=== PATIENT | male | born 1950 | race Caucasian/White ===

== ENCOUNTER → 2016-08-02 | Outpatient (CLI) | payer MEDICARE, OTHER ==
[~2016-08-02] MED LIST: AMLO5TAB2 PO; ASP325T PO; CATHETER FLUSH 10 ML SYR IV PRN; CPR500T PO; EZET1TAB15 PO; IOHEXOL 350 MG/ML 150 ML (OMNIPAQUE 350) VIAL IV ONE; MELO-198 PO; METF1000; METF850T PO; METO50TA7 PO; NF-ESOM40C PO; NS 100 ML (IVPB) BAG IV ONE; OMEG-12 PO; OMG1KC PO; OXYC-12 PO; QUIN40TA PO; SILD50TA PO
--- OUTSIDE RECORDS SUMMARY | 2016-08-02 10:53 | XMS REPORT | Continuity of Care Document ---
Author Author [facility] Organization [facility] Address Unknown Phone Unavailable Allergies Active Description Code Type Severity Reaction Onset Reported/Identified Relationship to Patient Clinical Status Yes No Known Drug Allergies [id number] Drug Allergy Unknown N/ A 05/03/2011 Medications Problems Date Dx Coded Attending Type Code Diagnosis Diagnosed By 01/25/2012 Ot 592.1 01/25/2012 Ot 789.09 08/16/2012 Ot 530.11 09/24/2014 Ot 959.4 09/24/2014 Ot E000.8 09/24/2014 Ot E030 09/24/2014 Ot E849.0 09/24/2014 Ot E917.9 09/24/2014 Ot 401.9 09/24/2014 Ot 414.01 09/24/2014 Ot 785.1 09/24/2014 Ot 401.9 09/24/2014 Ot 414.00 09/24/2014 Ot 785.1 09/24/2014 Ot 397.0 09/24/2014 Ot 414.00 09/24/2014 Ot 424.0 09/24/2014 Ot 427.69 09/24/2014 Ot 428.0 09/24/2014 Ot 785.1 09/24/2014 Ot 414.00 09/24/2014 Ot 427.69 09/24/2014 Ot 785.1 09/24/2014 Ot V72.84 09/24/2014 CARLOZ ROY, DAMI Salas Ot 726.12 09/24/2014 CARLOZ ROY, DAMI Saals Ot 923.03 09/26/2014 AMOS ROY, DAKOTA Lew Ot V72.84 10/02/2014 Ot 959.4 10/02/2014 Ot E000.8 10/02/2014 Ot E030 10/02/2014 Ot E849.0 10/02/2014 Ot E917.9 10/02/2014 Ot 401.9 10/02/2014 Ot 414.01 10/02/2014 Ot 785.1 10/02/2014 Ot 401.9 10/02/2014 Ot 414.00 10/02/2014 Ot 785.1 10/02/2014 Ot 397.0 10/02/2014 Ot 414.00 10/02/2014 Ot 424.0 10/02/2014 Ot 427.69 10/02/2014 Ot 428.0 10/02/2014 Ot 785.1 10/02/2014 Ot 414.00 10/02/2014 Ot 427.69 10/02/2014 Ot 785.1 10/02/2014 Ot V72.84 10/02/2014 CARLOZ ROY, DAMI Salas Ot 726.12 10/02/2014 CARLOZ ROY, DAMI Salas Ot 923.03 10/02/2014 AMOS ROY, DAKOTA Lew Ot V72.84 10/02/2014 Ot 959.4 10/02/2014 Ot E000.8 10/02/2014 Ot E030 10/02/2014 Ot E849.0 10/02/2014 Ot E917.9 10/02/2014 Ot 401.9 10/02/2014 Ot 414.01 10/02/2014 Ot 785.1 10/02/2014 Ot 401.9 10/02/2014 Ot 414.00 10/02/2014 Ot 785.1 10/02/2014 Ot 397.0 10/02/2014 Ot 414.00 10/02/2014 Ot 424.0 10/02/2014 Ot 427.69 10/02/2014 Ot 428.0 10/02/2014 Ot 785.1 10/02/2014 Ot 414.00 10/02/2014 Ot 427.69 10/02/2014 Ot 785.1 10/02/2014 Ot V72.84 10/02/2014 CARLOZ ROY, DAMI Salas Ot 726.12 10/02/2014 CARLOZ ROY, DAMI Salas Ot 923.03 10/02/2014 AMOS ROY, DAKOTA Lew Ot V72.84 10/02/2014 AMOS ROY, DAKOTA Lew Ot 530.11 04/08/2015 Ot 401.9 04/08/2015 Ot 414.01 04/08/2015 Ot 785.1 04/08/2015 Ot 401.9 04/08/2015 Ot 414.00 04/08/2015 Ot 785.1 04/08/2015 Ot 397.0 04/08/2015 Ot 414.00 04/08/2015 Ot 424.0 04/08/2015 Ot 427.69 04/08/2015 Ot 428.0 04/08/2015 Ot 785.1 04/08/2015 Ot 414.00 04/08/2015 Ot 427.69 04/08/2015 Ot 785.1 04/08/2015 Ot V72.84 04/08/2015 CARLOZ ROY, DAMI Salas Ot 726.12 04/08/2015 CARLOZ ROY, DAMI Salas Ot 923.03 04/08/2015 AMOS ROY, DAKOTA Lew Ot V72.84 04/10/2015 Ot 401.9 04/10/2015 Ot 414.01 04/10/2015 Ot 785.1 04/10/2015 Ot 401.9 04/10/2015 Ot 414.00 04/10/2015 Ot 785.1 04/10/2015 Ot 397.0 04/10/2015 Ot 414.00 04/10/2015 Ot 424.0 04/10/2015 Ot 427.69 04/10/2015 Ot 428.0 04/10/2015 Ot 785.1 04/10/2015 Ot 414.00 04/10/2015 Ot 427.69 04/10/2015 Ot 785.1 04/10/2015 Ot V72.84 04/10/2015 CARLOZ ROY, DAMI Salas Ot 726.12 04/10/2015 CARLOZ ROY, DAMI Salas Ot 923.03 04/10/2015 AMOS ROY, DAKOTA Lew Ot V72.84 04/10/2015 SAL ROY, NILESH Blount Ot E78.2 04/10/2015 NILESH HUANG MD Ot I10 04/10/2015 NILESH HUANG MD Ot I25.10 04/10/2015 NILESH HUANG MD Ot I65.23 04/14/2015 Ot 401.9 04/14/2015 Ot 414.01 04/14/2015 Ot 785.1 04/14/2015 Ot 401.9 04/14/2015 Ot 414.00 04/14/2015 Ot 785.1 04/14/2015 Ot 397.0 04/14/2015 Ot 414.00 04/14/2015 Ot 424.0 04/14/2015 Ot 427.69 04/14/2015 Ot 428.0 04/14/2015 Ot 785.1 04/14/2015 Ot 414.00 04/14/2015 Ot 427.69 04/14/2015 Ot 785.1 04/14/2015 Ot V72.84 04/14/2015 CARLOZ ROY, DAMI Salas Ot 726.12 04/14/2015 CARLOZ ROY, DAMI Salas Ot 923.03 04/14/2015 AMOS ROY, DAKOTA Lew Ot V72.84 04/14/2015 SAL ROY, NILESH Blount Ot E78.2 04/14/2015 SAL ROY, NILESH Blount Ot I10 04/14/2015 SAL ROY, NILESH Blount Ot I25.10 04/14/2015 SAL ROY, NILESH Blount Ot I65.23 04/15/2015 SAL ROY, NILESH Blount Ot I77.810 04/29/2015 SAL ROY, NILESH Blount Ot E78.2 04/29/2015 SAL ROY, NILESH Blount Ot I10 04/29/2015 SAL ROY, NILESH Blount Ot I25.10 04/29/2015 SAL ROY, NILESH Blount Ot I65.23 05/06/2015 SAL ROY, NILESH Blount Ot I77.810 07/10/2015 VANDANA ROY, EDELMIRA Salas Ot J98.11 07/10/2015 EDELMIRA ROSS MD Ot R42 07/13/2015 Ot 401.9 07/13/2015 Ot 414.01 07/13/2015 Ot 785.1 07/13/2015 Ot 401.9 07/13/2015 Ot 414.00 07/13/2015 Ot 785.1 07/13/2015 Ot 397.0 07/13/2015 Ot 414.00 07/13/2015 Ot 424.0 07/13/2015 Ot 427.69 07/13/2015 Ot 428.0 07/13/2015 Ot 785.1 07/13/2015 Ot 414.00 07/13/2015 Ot 427.69 07/13/2015 Ot 785.1 07/13/2015 Ot V72.84 07/13/2015 CARLOZ ROY, DAMI Salas Ot 726.12 07/13/2015 CARLOZ ROY, DAMI Salas Ot 923.03 07/13/2015 AMOS ROY, DAKOTA Lew Ot V72.84 07/13/2015 NILESH HUANG MD Ot E78.2 07/13/2015 NILESH HUANG MD Ot I10 07/13/2015 NILESH HUANG MD Ot I25.10 07/13/2015 NILESH HUANG MD Ot I65.23 07/13/2015 NILESH HUANG MD Ot I77.810 01/25/2016 DAMI CARTY MD Ot R53.83 OTHER FATIGUE 01/28/2016 CARLOZ ROY DAMI D Ot R53.83 OTHER FATIGUE 01/28/2016 CARLOZ ROY, DAMI D Ot R68.84 JAW PAIN 01/29/2016 CARLOZ ROY, DAMI D Ot R51 HEADACHE 01/29/2016 CARLOZ ROY DAMI Maritza Ot R68.84 JAW PAIN 02/25/2016 CARLOZ ROY, DAMI D Ot R51 HEADACHE 02/25/2016 CARLOZ ROY DAMI D Ot R68.84 JAW PAIN 02/25/2016 Ot R93.0 ABNORMAL FINDINGS ON DX IMAGING OF SKULL Procedures Results Test Result Range Automated blood complete blood count (hemogram) panel - 01/25/16 09:08 Blood leukocytes automated count (number/volume) 5.5 10*3/ uL 4.3-11.0 Blood erythrocytes automated count (number/volume) 4.63 10*6 /uL 4.35-5.85 Venous blood hemoglobin measurement (mass/volume) 14.7 g/dL 13.3-17.7 Blood hematocrit (volume fraction) 43 % 40-54 Automated erythrocyte mean corpuscular volume 92 [foz_us] 80-99 Automated erythrocyte mean corpuscular hemoglobin (mass per erythrocyte) 32 pg 25-34 Automated erythrocyte mean corpuscular hemoglobin concentration measurement ( mass/volume) 35 g/dL 32-36 Automated erythrocyte distribution width ratio 13.3 % 10.0-14.5 Automated blood platelet count (count/volume) 281 10*3/uL 130-400 Automated blood platelet mean volume measurement 9.9 [foz_us ] 7.4-10.4 Comprehensive metabolic panel - 01/25/16 09:08 Serum or plasma sodium measurement (moles/volume) 139 mmol/ L 135-145 Serum or plasma potassium measurement (moles/volume) 4.1 mmol/L 3.6-5.0 Serum or plasma chloride measurement (moles/volume) 107 mmol /L 98-107 Carbon dioxide 21 mmol/L 21-32 Serum or plasma anion gap determination (moles/volume) 11 mmol/L 5-14 Serum or plasma urea nitrogen measurement (mass/volume) 19 mg/dL 7-18 Serum or plasma creatinine measurement (mass/volume) 0.99 mg /dL 0.60-1.30 Serum or plasma urea nitrogen/creatinine mass ratio 19 NRG Serum or plasma creatinine measurement with calculation of estimated glomerular filtration rate > NRG Serum or plasma glucose measurement (mass/volume) 259 mg/dL 70-105 Serum or plasma calcium measurement (mass/volume) 9.6 mg/dL 8.5-10.1 Serum or plasma total bilirubin measurement (mass/volume) 0.7 mg/dL 0.1-1.0 Serum or plasma alkaline phosphatase measurement (enzymatic activity/volume) 58 U/L 40-136 Serum or plasma aspartate aminotransferase measurement (enzymatic activity/ volume) 22 U/L 5-34 Serum or plasma alanine aminotransferase measurement (enzymatic activity/volume ) 28 U/L 0-55 Serum or plasma protein measurement (mass/volume) 6.8 g/dL 6.4-8.2 Serum or plasma albumin measurement (mass/volume) 4.3 g/dL 3.2-4.5 THYROID STIMULATING HORMONE - 01/25/16 09:08 THYROID STIMULATING HORMONE 1.00 u[iU]/mL 0.35-4.94 Encounters ACCT No. Visit Date/Time Discharge Status Pt. Type Provider Facility Loc./Unit Complaint [id number] 07/10/2015 10:58:00 2015 13:01:00 DIS Emergency VANDANA ROY, EDELMIRA Salas [facility] ER [id number] 04/14/2015 08:03:00 2014 23:59:59 CLS Outpatient NILESH HUANG MD [facility] RAD [id number] 04/08/2015 07:43:00 2014 23:59:59 CLS Outpatient NILESH HUANG MD [facility] CARD [id number] 10/02/2014 08:09:00 2014 11:15:00 DIS Outpatient DAKOTA TRINIDAD MD [facility] [id number] 09/25/2014 06:39:00 2014 23:59:59 CLS Outpatient DAKOTA TRINIDAD MD [facility] PREOP [id number] 11/06/2012 09:47:00 2012 23:59:59 CLS Outpatient DAMI CARTY MD [facility] RAD [id number] 02/04/2016 11:13:00 Document Registration [id number] 01/25/2016 08:49:00 ACT Outpatient DAMI CARTY MD [facility] RAD JAW PAIN [id number] 08/16/2012 07:25:00 Document Registration [id number] 08/14/2012 13:38:00 Document Registration [id number] 07/25/2012 11:50:00 Document Registration [id number] 07/17/2012 07:24:00 Document Registration [id number] 01/25/2012 03:29:00 Document Registration [id number] 05/03/2011 11:57:00 Document Registration [id number] 04/25/2011 09:52:00 Document Registration [id number] 06/05/2009 09:31:00 Document Registration
[2016-08-02 11:20] LABS: BLOOD UREA NITROGEN 25 MG/DL (7-18); BUN/CREATININE RATIO 23; CREATININE SERUM 1.08 MG/DL (0.60-1.30); GFR ESTIMATED > 60
--- NOTE | 2016-08-02 12:57 | Diagnostic Imaging Report ---
PROCEDURE: CT angiography of the chest with contrast. TECHNIQUE: Multiple contiguous axial images were obtained through the chest after uneventful bolus administration of intravenous contrast. Reconstructed CTA MIP acquisitions were also performed. INDICATION: Aortic root dilatation. FINDINGS: The previous CTA chest exam of 04/14/2015 noted ectasia of the aortic root. The aortic root measured 4.1 x 4.5 cm in maximum AP and transverse diameters. On this study, the aortic root measures 4.0 x 4.5 cm. The ascending aorta is also slightly dilated measuring 4.2 cm in maximum diameter as opposed to 4.1 cm previously. There is still no sign of a dissection. There is no defect within the pulmonary arteries to indicate a pulmonary embolus. The heart is stable in size. Coronary artery calcifications involving the LAD are again noted. The lungs are generally clear and well aerated. There is no sign of failure, pneumonia, or pleural effusion to suggest an acute abnormality. The postsurgical changes involving the right lung base and right thorax and the retraction of the esophagus towards the right lower lobe seen on the prior study are again evident and no different. The sections through the upper abdomen show no sign of an acute abnormality. The liver is of lower density than usually seen. This does suggest fatty metamorphosis. The bone windows are unremarkable for a fracture or for a destructive lesion. IMPRESSION: 1. There is no evidence for an acute cardiopulmonary abnormality. 2. As noted on the prior exam, there is ectasia of the aortic root and mild dilatation of the ascending aorta. These findings are essentially no different than on the prior exam. 3. The postsurgical changes involving the lower thorax and lung base on the right seen previously are again evident and not significantly changed. Dictated by: Dictated on workstation # [id number]
== END ==
LOC: RAD 10:49
PROVIDERS: ATTEND Internal Medicine Cardiovascular Disease
DX: I77.810 Thoracic aortic ectasia (principal)
CPT/HCPCS: 36415; 71275; 82565; 84520

== ENCOUNTER → 2017-02-23 | Outpatient (CLI) | payer MEDICARE, OTHER ==
[~2017-02-23] MED LIST changes: -CATHETER FLUSH 10 ML SYR IV PRN; -IOHEXOL 350 MG/ML 150 ML (OMNIPAQUE 350) VIAL IV ONE; -NS 100 ML (IVPB) BAG IV ONE
== END ==
LOC: CARD 12:49
PROVIDERS: ATTEND Physician Assistant
DX: I25.10 Atherosclerotic heart disease of native coronary artery without angina pectoris (principal); I65.23 Occlusion and stenosis of bilateral carotid arteries; I10 Essential (primary) hypertension; E78.2 Mixed hyperlipidemia
CPT/HCPCS: 93306

== ENCOUNTER → 2017-02-27 | Outpatient (CLI) | payer MEDICARE, OTHER ==
[~2017-02-27] MED LIST changes: +CATHETER FLUSH 10 ML SYR IV PRN; +REGADENOSON 0.4 MG/5 ML SYR (LEXISCAN) IV ONE
[2017-02-27 09:25] VITALS: BP 106/63
--- NOTE | 2017-02-27 12:48 | STRESS TEST ---
DATE OF SERVICE: LEXISCAN MYOVIEW STRESS TEST REPORT REFERRING PHYSICIAN: Dr. Villarreal. Baseline heart rate is 62. Baseline blood pressure 110/65. Baseline EKG is sinus rhythm with no ischemic changes. In summary, the patient was injected with 10.83 mCi of technetium-99 Myoview and the resting images were obtained. Then, the patient received 0.4 mg of Lexiscan followed by 31.9 mCi of technetium-99 Myoview. Throughout the test, there were no EKG changes. The resting and stress images were reviewed and compared in the short axis, horizontal long axis, and vertical long axis views. Review of the images showed diaphragmatic attenuation with good radiotracer uptake, no significant ischemia or infarction. SSS is zero, TID value 1.22. On the gated images, the left ventricle appeared to be normal size with normal contractility. Calculated ejection fraction 64%. CONCLUSION: 1. The patient tolerated Lexiscan well. 2. Diaphragmatic attenuation with no significant ischemia or infarction on SPECT images. 3. TID value is mildly elevated of 1.22. Job ID: [id number] DocumentID: [id number] Dictated Date: 02/27/2017 11:52:55 Steel Rule Inspector Date: 02/27/2017 12:31:17 Dictated By: NILESH HUANG MD
== END ==
LOC: CARD 07:11
PROVIDERS: ATTEND Physician Assistant
DX: I25.10 Atherosclerotic heart disease of native coronary artery without angina pectoris (principal); I65.23 Occlusion and stenosis of bilateral carotid arteries; I10 Essential (primary) hypertension; E78.2 Mixed hyperlipidemia
CPT/HCPCS: 78452; 93017

== ENCOUNTER → 2017-11-17 | Outpatient (CLI) | payer MEDICARE, OTHER ==
[~2017-11-17] MED LIST changes: +IOHEXOL 350 MG/ML 100 ML (OMNIPAQUE 350) VIAL IV ONE; -METF1000; +METF10002; +NS 250 ML (IVPB) BAG IV ONE; +RECEIVED CONTRAST (Hold Metformin) IV SCH; -REGADENOSON 0.4 MG/5 ML SYR (LEXISCAN) IV ONE
--- NOTE | 2017-11-17 11:01 | Diagnostic Imaging Report ---
PROCEDURE: CT abdomen and pelvis with and without contrast. TECHNIQUE: Precontrast acquisitions were acquired through the abdomen and pelvis. Multiple contiguous axial images were obtained through the abdomen and pelvis after the administration of intravenous contrast. INDICATION: Right lower quadrant pain for 2-3 months. Patient has also experienced weight loss over last 2 months, unexplained. COMPARISON: Comparison is made with a noncontrast CT of the abdomen and pelvis from 01/25/2012. FINDINGS: Imaging through the lung bases does show a tiny nodule in the posterior lateral left lower lobe, stable when compared with study from 2012. Chronic deformity of the right posterior thorax is similar to prior study. No discrete liver mass is identified. The gallbladder is unremarkable. The pancreas and spleen are unremarkable. No adrenal mass is identified. No renal or ureteral calculi are detected. There is no hydronephrosis. Aorta is calcified but nonaneurysmal. Small and large bowel loops appear to be normal caliber. Appendix is visualized in the right lower quadrant and unremarkable. No inflammatory changes are seen. No central retroperitoneal or mesenteric lymphadenopathy is identified. There is no ascites. Bladder and prostate are unremarkable. The bony structures appear nonacute. IMPRESSION: Essentially unremarkable CT of the abdomen and pelvis. No urinary tract calculi or obstruction is seen. No acute inflammatory process is detected. Dictated by: Dictated on workstation # [id number]
--- NOTE | 2017-11-17 11:37 | Diagnostic Imaging Report ---
INDICATION: Weight loss COMPARISON: 07/10/2015 FINDINGS: Two views of the chest are obtained. Heart size is normal. The pulmonary vessels appear unremarkable. There is no pneumothorax, mediastinal widening or pleural fluid. There is mild elevation of the right hemidiaphragm which is unchanged. Some opacity in the infrahilar right lower lobe is similar to the prior study. This may represent some atelectasis or scarring. Underlying ongoing infiltrate not entirely excluded. No new abnormality is seen. The left lung appears clear. The osseous structures appear unremarkable. IMPRESSION: There is persistent infrahilar opacity on the right which may represent atelectasis or scarring, similar in appearance to prior exam from 2016. Underlying ongoing or recurrent infiltrate not entirely excluded. No new abnormality is seen. Dictated by: Dictated on workstation # [id number]
== END ==
LOC: RAD 09:33
DX: R10.31 Right lower quadrant pain (principal); R63.4 Abnormal weight loss; J98.4 Other disorders of lung
CPT/HCPCS: 71046; 74178

== ENCOUNTER → 2018-02-06 | Outpatient (CLI) | payer MEDICARE, OTHER ==
[~2018-02-06] MED LIST changes: -CATHETER FLUSH 10 ML SYR IV PRN; +METF-399; -METF10002; -RECEIVED CONTRAST (Hold Metformin) IV SCH
--- NOTE | 2018-02-06 12:54 | Diagnostic Imaging Report ---
PROCEDURE: CT chest with contrast only. TECHNIQUE: Multiple contiguous axial images were obtained through the chest after administration of intravenous contrast. INDICATION: Cough. Study compared 08/02/2016. Some old posterolateral right chest wall deformity with some adjacent chronic appearing pleural-parenchymal scarring. No evidence for focal pneumonia. No suspicious lung mass and no thoracic lymphadenopathy. No effusion or pneumothorax. Aorta is patent and nonaneurysmal. There is no central pulmonary arterial filling defect. Visualized upper abdomen nonacute. IMPRESSION: No acute appearing abnormality. Dictated by: Dictated on workstation # [id number]
== END ==
LOC: RAD 07:13
DX: R05 Cough (principal)
CPT/HCPCS: 71260

== ENCOUNTER 2018-07-02 13:34 | Outpatient (RCR) | payer MEDICARE, OTHER ==
[~2018-07-02 13:34] MED LIST changes: -IOHEXOL 350 MG/ML 100 ML (OMNIPAQUE 350) VIAL IV ONE; -NS 250 ML (IVPB) BAG IV ONE
== END 2018-09-30 | disposition home or self-care (01) ==
LOC: ONC 13:34
PROVIDERS: ATTEND Internal Medicine Hematology & Oncology
DX: R97.0 Elevated carcinoembryonic antigen [CEA] (principal); R14.0 Abdominal distension (gaseous)
CPT/HCPCS: 99213

== ENCOUNTER 2018-08-19 17:31 | Emergency (ER) | payer MEDICARE, OTHER ==
[~2018-08-19] VITALS: Ht 185.4 cm; Wt 81.6 kg
--- OUTSIDE RECORDS SUMMARY | 2018-08-19 17:35 | XMS REPORT ---
Author Author [facility] Address Unknown Care Team Providers Care Deputy Coroner Name Role Phone KRYSTLE LENTZ Unavailable PROBLEMS Unknown Problems ALLERGIES Substance Reaction Event Type Date Status N.K.D.A. Unknown Non Drug Allergy Apr, Unknown SOCIAL HISTORY No smoking Hx information available PLAN OF CARE Activity Details Follow Up 1 Week Reason:te VITAL SIGNS Blood pressure systolic 134 mmHg 2016-05-25 Blood pressure diastolic 80 mmHg 2016-05-25 MEDICATIONS Medication Instructions Dosage Frequency Start Date End Date Duration Status Amoxicillin 500 MG Orally Three times a day 1 capsule 8h 7 days Active Hebo 5-325 MG Orally every 6 hrs 1 tablet as needed 6h 4 days Active Toprol XL 50 MG Orally Once a day 1 tablet 24h Active Fish Oil 1000 MG Orally Once a day 1 capsule 24h Active Nexium 40 MG Orally Once a day 1 capsule 24h Active Quinapril HCl 40 MG Orally Once a day 1 tablet 24h Active Metformin HCl 1000 MG Orally Twice a day 1 tablet with meals 12h Active Vytorin 10-10 MG Orally Once a day 1 tablet 24h Active Amlodipine Besylate 5 MG Orally Once a day 1 tablet 24h Active Aspirin 325 MG Orally Once a day 1 tablet 24h Active RESULTS No Results PROCEDURES Procedure Date Ordered Related Diagnosis Body Site LTD ORAL EVALUATION - PROBLEM FOCUS May 25, 2016 INTRAORL-PERIAPICAL 1 FILM 56810 May 25, 2016 IMMUNIZATIONS No Known Immunizations
--- OUTSIDE RECORDS SUMMARY | 2018-08-19 17:36 | XMS REPORT | Continuity of Care Document ---
Author Author [facility] Organization [facility] Address Unknown Phone Unavailable Allergies Active Description Code Type Severity Reaction Onset Reported/Identified Relationship to Patient Clinical Status Yes No Known Drug Allergies [id number] Drug Allergy Unknown N/A 05/03/2011 Medications There is no data. Problems Date Dx Coded Attending Type Code Diagnosis Diagnosed By 01/25/2012 Ot 592.1 CALCULUS OF URETER 01/25/2012 Ot 789.09 ABDOMINAL PAIN, OTHER SPECIFIED SITE 08/16/2012 Ot 530.11 REFLUX ESOPHAGITIS 09/24/2014 Ot 959.4 09/24/2014 Ot E000.8 09/24/2014 [...] Salas Ot 726.12 09/24/2014 CARLOZ ROY, DAMI Salas Ot 923.03 09/26/2014 AMOS ROY, DAKOTA Lew [...] 10/02/2014 AMOS ROY, DAKOTA Lew Ot 530.11 REFLUX ESOPHAGITIS 04/08/2015 Ot 401.9 04/08/2015 Ot 414.01 04/08/2015 [...] AMOS ROY, DAKOTA Lew Ot V72.84 04/10/2015 NILESH HUANG MD Ot E78.2 04/10/2015 NILESH HUANG MD Ot [...] SAL ROY, NILESH Blount Ot I65.23 04/15/2015 NILESH HUANG MD Ot I77.810 04/29/2015 SAL ROY, NILESH Blount Ot E78.2 04/29/2015 SAL ROY, NILESH Blount Ot I10 04/29/2015 SAL ROY, NILESH Blount Ot I25.10 04/29/2015 SAL ROY, NILESH Blount Ot I65.23 05/06/2015 SAL ROY, NILESH Blount Ot I77.810 07/10/2015 EDELMIRA ROSS MD Ot J98.11 ATELECTASIS 07/10/2015 EDELMIRA ROSS MD Ot R42 DIZZINESS AND GIDDINESS 07/13/2015 Ot 401.9 07/13/2015 Ot 414.01 07/13/2015 [...] Salas Ot 923.03 07/13/2015 AMOS ROY, DAKOTA S Ot V72.84 07/13/2015 SAL ROY, NILESH Blount Ot E78.2 07/13/2015 SAL ROY, NILESH Blount Ot I10 07/13/2015 NILESH HUANG MD Ot I25.10 07/13/2015 SAL ROY, NILESH Blount Ot I65.23 07/13/2015 NILESH HUANG MD Ot I77.810 01/25/2016 CARLOZ ROY, DAMI Salas Ot R53.83 OTHER FATIGUE 01/28/2016 CARLOZ ROY, DAMI Salas Ot R53.83 OTHER FATIGUE 01/28/2016 CARLOZ ROY, DAMI Salas Ot R68.84 JAW PAIN 01/29/2016 CARLOZ ROY, DAMI Salas Ot R51 HEADACHE 01/29/2016 DAMI CARTY MD Ot R68.84 JAW PAIN 02/25/2016 CARLOZ ROY, DAMI Salas Ot R51 HEADACHE 02/25/2016 CARLOZ ROY, DAMI Salas Ot R68.84 JAW PAIN 02/25/2016 Ot R93.0 ABNORMAL FINDINGS ON DX IMAGING OF SKULL 08/02/2016 Ot 401.9 HYPERTENSION NOS 08/02/2016 Ot 414.01 CORONARY ATHEROSCLEROSIS OF [place] CORON 08/02/2016 Ot 785.1 PALPITATIONS 08/02/2016 Ot 401.9 HYPERTENSION NOS 08/02/2016 Ot 414.00 CORON ATHEROSCLER NOS TYPE VESSEL, NATIV 08/02/2016 Ot 785.1 PALPITATIONS 08/02/2016 Ot 397.0 TRICUSPID VALVE DISEASE 08/02/2016 Ot 414.00 CORON ATHEROSCLER NOS TYPE VESSEL, NATIV 08/02/2016 Ot 424.0 MITRAL VALVE DISORDER 08/02/2016 Ot 427.69 PREMATURE BEATS NEC 08/02/2016 Ot 428.0 CONGESTIVE HEART FAILURE NOS 08/02/2016 Ot 785.1 PALPITATIONS 08/02/2016 Ot 414.00 CORON ATHEROSCLER NOS TYPE VESSEL, NATIV 08/02/2016 Ot 427.69 PREMATURE BEATS NEC 08/02/2016 Ot 785.1 PALPITATIONS 08/02/2016 Ot V72.84 EXAM PRE- OPERATIVE NOS 08/02/2016 DAMI CARTY MD Ot 726.12 BICIPITAL TENOSYNOVITIS 08/02/2016 DAMI CARTY MD Ot 923.03 CONTUSION OF UPPER ARM 08/02/2016 AMOS ROY, DAKOTA S Ot V72.84 EXAM PRE-OPERATIVE NOS 08/02/2016 NILESH HUANG MD Ot E78.2 MIXED HYPERLIPIDEMIA 08/02/2016 NILESH HUANG MD Ot I10 ESSENTIAL (PRIMARY) HYPERTENSION 08/02/2016 NILESH HUANG MD Ot I25.10 ATHSCL HEART DISEASE OF [place] CORONARY 08/02/2016 NILESH HUANG MD Ot I65.23 OCCLUSION AND STENOSIS OF BILATERAL [place] 08/02/2016 NILESH HUANG MD Ot I77.810 THORACIC AORTIC ECTASIA 08/02/2016 DAMI CARTY MD Ot R51 HEADACHE 08/02/2016 DAMI CARTY MD Ot R68.84 JAW PAIN 08/02/2016 Ot R93.0 ABNORMAL FINDINGS ON DX IMAGING OF SKULL 08/03/2016 NILESH HUANG MD Ot I77.810 THORACIC AORTIC ECTASIA 08/03/2016 NILSEH HUANG MD Ot I77.810 THORACIC AORTIC ECTASIA 08/25/2016 NILESH HUANG MD Ot I77.810 THORACIC AORTIC ECTASIA 03/05/2017 ARIES PERKINS Ot E78.2 MIXED HYPERLIPIDEMIA 03/05/2017 ARIES PERKINS Ot I10 ESSENTIAL (PRIMARY) HYPERTENSION 03/05/2017 ARIES PERKINS Ot I25.10 ATHSCL HEART DISEASE OF [place] CORONARY 03/05/2017 ARIES PERKINS Ot I65.23 OCCLUSION AND STENOSIS OF [place]ILATERAL [place] 03/15/2017 ARIES PERKINS Ot E78.2 MIXED HYPERLIPIDEMIA 03/15/2017 ARIES PERKINS Ot I10 ESSENTIAL (PRIMARY) HYPERTENSION 03/15/2017 ARIES PERKINS Ot I25.10 ATHSCL HEART DISEASE OF [place] CORONARY 03/15/2017 ARIES PERKINS Ot I65.23 OCCLUSION AND STENOSIS OF BILATERAL [place] 03/22/2017 ARIES PERKINS Ot E78.2 MIXED HYPERLIPIDEMIA 03/22/2017 ARIES PERKINS Ot I10 ESSENTIAL (PRIMARY) HYPERTENSION 03/22/2017 ARIES PERKINS Ot I25.10 ATHSCL HEART DISEASE OF [place] CORONARY 03/22/2017 ARIES PERKINS Ot I65.23 OCCLUSION AND STENOSIS OF BILATERAL [place] 11/20/2017 DAMI CARTY MD Ot J98.4 OTHER DISORDERS OF LUNG 11/20/2017 CARLOZ ROY, DAMI Salas Ot R10.31 RIGHT LOWER QUADRANT PAIN 11/20/2017 DAMI CARTY MD Ot R63.4 ABNORMAL WEIGHT LOSS 12/08/2017 DAMI CARTY MD Ot J98.4 OTHER DISORDERS OF LUNG 12/08/2017 DAMI CARTY MD Ot R10.31 RIGHT LOWER QUADRANT PAIN 12/08/2017 DAMI CARTY MD Ot R63.4 ABNORMAL WEIGHT LOSS 07/02/2018 AMOS ROY, DAKOTA Lew Ot V72.84 EXAM PRE-OPERATIVE NOS 07/02/2018 NILESH HUANG MD Ot E78.2 MIXED HYPERLIPIDEMIA 07/02/2018 NILESH HUANG MD Ot I10 ESSENTIAL (PRIMARY) HYPERTENSION 07/02/2018 NILESH HUANG MD Ot I25.10 ATHSCL HEART DISEASE OF [place] CORONARY 07/02/2018 NILESH HUANG MD Ot I65.23 OCCLUSION AND STENOSIS OF [place]ILATERAL [place] 07/02/2018 NILESH HUANG MD Ot I77.810 THORACIC AORTIC ECTASIA 07/02/2018 DAMI CARTY MD Ot R51 HEADACHE 07/02/2018 DAMI CARTY MD Ot R68.84 JAW PAIN 07/02/2018 Ot R93.0 ABNORMAL FINDINGS ON DX IMAGING OF SKULL 07/02/2018 NILESH HUANG MD Ot I77.810 THORACIC AORTIC ECTASIA 07/02/2018 ARIES PERKINS Ot E78.2 MIXED HYPERLIPIDEMIA 07/02/2018 ARIES PERKINS Ot I10 ESSENTIAL (PRIMARY) HYPERTENSION 07/02/2018 ARIES PERKINS Ot I25.10 ATHSCL HEART DISEASE OF [place] CORONARY 07/02/2018 ARIES PERKINS Ot I65.23 OCCLUSION AND STENOSIS OF [place]ILATERAL [place] 07/02/2018 ARIES PERKINS Ot E78.2 MIXED HYPERLIPIDEMIA 07/02/2018 ARIES PERKINS Ot I10 ESSENTIAL (PRIMARY) HYPERTENSION 07/02/2018 ARIES PERKINS Ot I25.10 ATHSCL HEART DISEASE OF [place] CORONARY 07/02/2018 ARIES PERKINS Ot I65.23 OCCLUSION AND STENOSIS OF BILATERAL [place] 07/02/2018 CARLOZ ROY, DAMI Salas Ot J98.4 OTHER DISORDERS OF LUNG 07/02/2018 CARLOZ ROY, DAMI Salas Ot R10.31 RIGHT LOWER QUADRANT PAIN 07/02/2018 DAMI CARTY MD Ot R63.4 ABNORMAL WEIGHT LOSS 07/02/2018 CARLOZ ROY, DAMI Salas Ot R05 COUGH 07/02/2018 AMOS ROY, DAKOTA Lew Ot V72.84 EXAM PRE-OPERATIVE NOS 07/02/2018 NILESH HUANG MD Ot E78.2 MIXED HYPERLIPIDEMIA 07/02/2018 NILESH HUANG MD Ot I10 ESSENTIAL (PRIMARY) HYPERTENSION 07/02/2018 NILESH HUANG MD Ot I25.10 ATHSCL HEART DISEASE OF [place] CORONARY 07/02/2018 NILESH HUANG MD Ot I65.23 OCCLUSION AND STENOSIS OF [place]ILATERAL [place] 07/02/2018 NILESH HUAGN MD Ot I77.810 THORACIC AORTIC ECTASIA 07/02/2018 DAMI CARTY MD Ot R51 HEADACHE 07/02/2018 DAMI CARTY MD Ot R68.84 JAW PAIN 07/02/2018 Ot R93.0 ABNORMAL FINDINGS ON DX IMAGING OF SKULL 07/02/2018 NILESH HUANG MD Ot I77.810 THORACIC AORTIC ECTASIA 07/02/2018 ARIES PERKINS Ot E78.2 MIXED HYPERLIPIDEMIA 07/02/2018 ARIES PERKINS Ot I10 ESSENTIAL (PRIMARY) HYPERTENSION 07/02/2018 ARIES PERKINS Ot I25.10 ATHSCL HEART DISEASE OF [place] CORONARY 07/02/2018 ARIES PERKINS Ot I65.23 OCCLUSION AND STENOSIS OF BILATERAL [place] 07/02/2018 ARIES PERKINS Ot E78.2 MIXED HYPERLIPIDEMIA 07/02/2018 ARIES PERKINS Ot I10 ESSENTIAL (PRIMARY) HYPERTENSION 07/02/2018 ARIES PERKINS Ot I25.10 ATHSCL HEART DISEASE OF [place] CORONARY 07/02/2018 ARIES PERKINS Ot I65.23 OCCLUSION AND STENOSIS OF [place]ILATER[place] 07/02/2018 DAMI CARTY MD Ot J98.4 OTHER DISORDERS OF LUNG 07/02/2018 DAMI CARTY MD, Ot R10.31 RIGHT LOWER QUADRANT PAIN 07/02/2018 DAMI CARTY MD Ot R63.4 ABNORMAL WEIGHT LOSS 07/02/2018 DAMI CARTY MD, Ot R05 COUGH 08/17/2018 NICOLE MOODY Ot R14.0 ABDOMINAL DISTENSION (GASEOUS) 08/17/2018 NICOLE MOODY Ot R97.0 ELEVATED CARCINOEMBRYONIC ANTIGEN [CEA] Procedures There is no data. Results Test Result Range Automated blood complete blood count (hemogram) panel - 01/25/16 09:08 Blood leukocytes automated count (number/volume) 5.5 10*3/uL 4.3-11.0 Blood erythrocytes automated count (number/volume) 4.63 10*6/uL 4.35-5.85 Venous blood hemoglobin measurement (mass/volume) 14.7 [...] Automated blood platelet mean volume measurement 9.9 [foz_us] 7.4-10.4 Comprehensive metabolic panel - 01/25/16 09:08 Serum or plasma sodium measurement (moles/volume) 139 mmol/L 135-145 Serum or plasma potassium measurement (moles/volume) 4.1 mmol/L 3.6-5.0 Serum or plasma chloride measurement (moles/volume) 107 mmol/L 98-107 Carbon dioxide 21 mmol/L 21-32 Serum or plasma anion gap determination (moles/volume) 11 mmol/L 5-14 Serum or plasma urea nitrogen measurement (mass/volume) 19 mg/dL 7-18 Serum or plasma creatinine measurement (mass/volume) 0.99 mg/dL 0.60-1.30 Serum or plasma urea nitrogen/creatinine mass [...] Status Pt. Type Provider Facility Loc./Unit Complaint [id number] 07/02/2018 13:34:00 07/02/2018 23:59:59 CLS Outpatient NICOLE MOODY [facility] ONC [id number] 02/06/2018 07:13:00 02/06/2018 23:59:59 CLS Outpatient DAMI CARTY MD [facility] RAD COUGH [id number] 11/17/2017 09:33:00 11/17/2017 23:59:59 CLS Outpatient DAMI CARTY MD [facility] RAD ABNORMAL WEIGHT LOSS [id number] 11/16/2017 14:55:00 11/16/2017 23:59:59 CLS Preadmit DAMI CARTY MD [facility] RAD ABDOMINAL PAIN [id number] 02/27/2017 07:11:00 02/27/2017 23:59:59 CLS Outpatient [facility] CARD CAD I25.10, HTN I10 [id number] 02/23/2017 12:49:00 02/23/2017 23:59:59 CLS Outpatient [facility] CARD CAD I25.10, HTN I10 [id number] 08/02/2016 10:49:00 08/02/2016 23:59:59 CLS Outpatient NILESH HUANG MD [facility] RAD AORTIC ROOT DILATION [id number] 01/25/2016 08:49:00 01/25/2016 23:59:59 CLS Outpatient DAMI CARTY MD [facility] RAD JAW PAIN [id number] 07/10/2015 10:58:00 07/10/2015 13:01:00 DIS Emergency EDELMIRA ROSS MD [facility] ER DIZZINESS/BLURRY VISION [id number] 04/14/2015 08:03:00 04/14/2015 23:59:59 CLS Outpatient NILESH HUANG MD [facility] RAD AORTIC ROOT DILATION [id number] 04/08/2015 07:43:00 04/08/2015 23:59:59 CLS Outpatient NILESH HUANG MD [facility] CARD CAD,HTN,HLP [id number] 10/02/2014 08:09:00 10/02/2014 11:15:00 DIS Outpatient DAKOTA TRINIDAD MD [facility] SDC GERD [id number] 09/25/2014 06:39:00 09/25/2014 23:59:59 CLS Outpatient DAKOTA TRINIDAD MD [facility] PREOP GERD [id number] 11/06/2012 09:47:00 11/06/2012 23:59:59 CLS Outpatient DAMI CARTY MD [facility] RAD HEMATOMA,TENDON TEAR [id number] 02/04/2016 11:13:00 Document Registration [id number] 08/16/2012 07:25:00 Document Registration [id number] 08/14/2012 13:38:00 Document Registration [id number] 07/25/2012 11:50:00 Document Registration [id number] 07/17/2012 07:24:00 Document Registration [id number] 01/25/2012 03:29:00 Document Registration [id number] 05/03/2011 11:57:00 Document Registration [id number] 04/25/2011 09:52:00 Document Registration [id number] 06/05/2009 09:31:00 Document Registration
[2018-08-19 17:45] VITALS: BP_SYST 117; BP_SYST 130; BP_SYST 139; BP_DIAS 72; BP_DIAS 83; BP_DIAS 86
[2018-08-19] MEDS ORDERED: NS IV 1000 ML 1,000 ML IV ONE (18:08)
[2018-08-19 18:09] LABS: BASOPHILS % (AUTO) 0 % (0-10); EOSINOPHILS # (AUTO) 0.2 10^3/uL (0.0-0.3); EOSINOPHILS % (AUTO) 2 % (0-10); HEMATOCRIT 41 % (40-54); HEMOGLOBIN 14.1 G/DL (13.3-17.7); LYMPHOCYTES # (AUTO) 1.4 X 10^3 (1.0-4.0); LYMPHOCYTES % (AUTO) 20 % (12-44); MEAN CORPUSCULAR HEMOGLOBIN 31 PG (25-34); MEAN CORPUSCULAR HGB CONC 35 G/DL (32-36); MEAN CORPUSCULAR VOLUME 89 FL (80-99); MEAN PLATELET VOLUME 10.1 FL (7.4-10.4); MONOCYTES # (AUTO) 0.6 X 10^3 (0.0-1.0); MONOCYTES % (AUTO) 9 % (0-12); NEUTROPHILS # (AUTO) 4.7 X 10^3 (1.8-7.8); NEUTROPHILS % (AUTO) 68 % (42-75); PLATELET COUNT 337 10^3/uL (130-400); RED CELL DISTRIBUTION WIDTH 13.8 % (10.0-14.5); WHITE BLOOD COUNT 6.8 10^3/uL (4.3-11.0)
[2018-08-19] MEDS ORDERED: ONDANSETRON 4 MG/2 ML (SDV) Z0FRAN IVP ONE (18:15)
[2018-08-19] MEDS ORDERED: SCOPOLAMINE 1.5 MG (TRANSDERM-SCOP) PATCH TD ONE (18:15)
[2018-08-19 18:21] LABS: ALANINE AMINOTRANSFERASE 24 U/L (0-55); ALBUMIN 4.7 GM/DL (3.2-4.5); ALKALINE PHOSPHATASE 57 U/L (40-136); BILIRUBIN,TOTAL 0.9 MG/DL (0.1-1.0); BUN/CREATININE RATIO 25; CALCIUM 10.4 MG/DL (8.5-10.1); CARBON DIOXIDE 22 MMOL/L (21-32); CHLORIDE 102 MMOL/L (98-107); CREATINE KINASE 134 U/L (30-200); CREATININE SERUM 1.13 MG/DL (0.60-1.30); GFR ESTIMATED > 60; GLUCOSE 136 MG/DL (70-105); MAGNESIUM 2.2 MG/DL (1.8-2.4); SODIUM 138 MMOL/L (135-145); TOTAL PROTEIN 7.8 GM/DL (6.4-8.2)
--- NOTE | 2018-08-19 18:22 | ED General ---
General Chief Complaint: Dizziness/Syncope Stated Complaint: BLURRED VISION,JAW PAIN,HEADACHE X 1 WEEK Nursing Triage Note: PATIENT VERBALIZED DIZZINESS, JAW PAIN LEFT SIDE, BLURRY VISION, AND HEADACHE X 1 WEEK, WORSENING. Nursing Sepsis Screen: No Definite Risk Source of Information: Patient Exam Limitations: No Limitations History of Present Illness Date Seen by Provider: Aug 19, 2018 Time Seen by Provider: 17:55 Initial Comments PT ARRIVES VIA POV STATES HE HAS BEEN HAVING SYMPTOMS FOR OVER A WEEK, AND NOT GETTING BETTER, BUT IS NOT WORSE STATES HE WOKE UP ON MONDAY WITH THIS PROBLEM C/O BLURRY AND DOUBLE VISION--BOTH EYES. THIS IS IMPROVED IF HE SHUTS ONE EYE-- BUT BOTH EYES ARE EQUALLY AFFECTED. STATES DOUBLE VISION IS [id number]. C/O DIZZINESS--STATES "IT'S BECAUSE MY EYES WON'T WORK TOGETHER" C/O NAUSEA, NO VOMITING C/O MILD BILATERAL EYE PAIN--LEFT > RIGHT C/O HEADACHE--PAIN HAS MOVED AROUND AND NOW IS MOSTLY ON LEFT SIDE OF FACE AND TMJ AREA NO SHORTNESS OF BREATH NO NEW PARESTHESIAS OR MOTOR DEFICITS--PT HAS DIABETIC PERIPHERAL NEUROPATHY NO SWEATS PT HAS CHRONIC CHEST PAIN OFF AND ON--LAST COUPLE OF DAYS HAS HAD LEFT UPPER CHEST DISCOMFORT HAS HAD DECREASED APPETITE DUE TO NAUSEA, FROM DIZZINESS PT HAS BEEN IN [facility] ALL WEEKEND AT A [employer] AND JUST GOT BACK THIS AFTERNOON AND CAME STRAIGHT HERE. STATES HE HAD TO WATCH ENTIRE [employer] GAME WITH ONE EYE CLOSED DUE TO DOUBLE VISION, AND DROVE TO AND FROM [facility] WITH ONE EYE CLOSED. PCP: DR. CARTY AIRPLANE DISPATCH CLERK: DR. HUANG DENTAL CHAIR ASSEMBLER: DR. PALMER--HAS NOT SEEN FOR AWHILE. PT WEARS GLASSES Allergies and Home Medications Allergies Coded Allergies: No Known Drug Allergies (Unverified , 05/03/11) Home Medications Aspirin 325 Mg Tab, 325 MG PO DAILY, (Reported) Esomeprazole Mag Trihydrate 40 Mg Capsule.dr, 1 CAP PO DAILY, (Reported) Ezetimibe/Simvastatin 1 Each Tablet, 1 EACH PO DAILY, (Reported) Metformin Hcl 850 Mg Tablet, 1 EACH PO DAILY, (Reported) Metoprolol Succinate 50 Mg Tab.sr.24h, 1 EACH PO BID, (Reported) Quinapril Hcl 40 Mg Tablet, 40 MG PO DAILY, (Reported) Sildenafil Citrate 50 Mg Tablet, 50 MG PO PRN, (Reported) Patient Home Medication List Home Medication List Reviewed: Yes Review of Systems Review of Systems Constitutional: see HPI; No diaphoresis; dizziness EENTM: see HPI, blurred vision, double vision, eye pain; No tearing, No vision loss, No nose congestion Respiratory: no symptoms reported Cardiovascular: no symptoms reported Gastrointestinal: see HPI; No abdominal pain, No diarrhea; nausea Genitourinary: no symptoms reported Musculoskeletal: no symptoms reported Skin: no symptoms reported Psychiatric/Neurological: See HPI, Headache; Denies Numbness, Denies Paresthesia, Denies Seizure, Denies Tingling, Denies Tremors, Denies Weakness Hematologic/Lymphatic: No Symptoms Reported Immunological/Allergic: no symptoms reported Past Iwlvxdl-Kqcytc-Agrhvg Hx Patient Social History Alcohol Use: Occasionally Uses Recreational Drug Use: No Smoking Status: Never a Smoker Recent Foreign Travel: No Contact w/Someone Who Travel: No Recent Infectious Disease Expo: No Past Medical History Surgeries: Yes (HIATAL HERNIA REPAIR, PERFORATED ESOPHAGUS, RIB REMOVED; CARDIAC CATH--STENT X 1; RIGHT KNEE SCOPE; ) Abdominal, Cardiac, Coronary Stent Respiratory: No Cardiac: Yes (STENT X 1; THORACIC AORTIC ANEURYSM--DR. HUANG FOLLOWS IT, NO CHANGE IN SIZE) Aneurysm, Coronary Artery Disease, Heart Attack, High Cholesterol, Hypertension Neurological: Yes (PERIPHERAL NEUROPATHY IN FEET BILATERALLY; LEFT JASSO'S PALSY -COMPLETE RESOLUTION OF SYMPOTMS) Neuropathy Genitourinary: No Gastrointestinal: Yes (S/P HIATAL HERNIA REPAIR) Gastroesophageal Reflux, Hiatal Hernia Musculoskeletal: Yes (ARTHRITIS) Arthritis Endocrine: Yes Diabetes, Non-Insulin dep HEENT: Yes (WEARS GLASSES) Cancer: No Psychosocial: No Integumentary: No Blood Disorders: No Family Medical History No Pertinent Family Hx Physical Exam Vital Signs Vital Signs - First Documented 08/19/18 17:40 Temp 97.3 Pulse 69 Resp 18 B/P (MAP) 133/76 (95) Pulse Ox 96 O2 Delivery Room Air Capillary Refill : Less Than 3 Seconds Height, Weight, BMI Height: 6'1.00" Weight: 180lbs. oz. 81.231395lk; 28.12 BMI Method:Stated General Appearance: No Apparent Distress, WD/WN HEENT: PERRL/EOMI, TMs Normal, Normal ENT Inspection, Pharynx Normal, Other ( NO NYSTAGMUS) Neck: Full Range of Motion, Normal Inspection, Non Tender, Supple; No Carotid Bruit, No JVD Respiratory: Normal Breath Sounds, No Accessory Muscle Use, No Respiratory Distress Cardiovascular: Regular Rate, Rhythm, No Edema, No Gallop, No JVD, No Murmur, Normal Peripheral Pulses Gastrointestinal: Normal Bowel Sounds, No Organomegaly, No Pulsatile Mass, Non Tender, Soft Back: Normal Inspection, No CVA Tenderness Extremity: Normal Capillary Refill, Normal Inspection, Normal Range of Motion, Non Tender, No Calf Tenderness, No Pedal Edema Neurologic/Psychiatric: Alert, Oriented x3, No Motor/Sensory Deficits, Normal Mood/Affect, 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 II-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 Norm as Tested; No Abnormal Cerebellar Tests, No Abnormal Gait Reflexes: 1+ Bicep (R), 1+ Bicep (L), 1+ Knee (R), 1+ Knee (L) Skin: Normal Color, Warm/Dry Progress/Results/Core Measures Suspected Sepsis Recent Fever Within 48 Hours: No Infection Criteria Present: None New/Unexplained Altered Menta: No Sepsis Screen: No Definite Risk SIRS Temperature:97.3 Pulse: 85 Respiratory Rate: 18 Laboratory Tests 08/19/18 17:45: White Blood Count 6.8 Blood Pressure 117 /72 Mean: 87 Laboratory Tests 08/19/18 17:45: Creatinine 1.13, INR Comment 0.9, Platelet Count 337, Total Bilirubin 0.9 Results/Orders Lab Results Laboratory Tests Test 08/19/18 17:45 08/19/18 18:19 08/19/18 18:23 Range/Units White Blood Count 6.8 4.3-11.0 10^3/uL Red Blood Count 4.60 4.35-5.85 10^6/uL Hemoglobin 14.1 13.3-17.7 G/DL Hematocrit 41 40-54 % Mean Corpuscular Volume 89 80-99 FL Mean Corpuscular Hemoglobin 31 25-34 PG Mean Corpuscular Hemoglobin Concent 35 32-36 G/DL Red Cell Distribution Width 13.8 10.0-14.5 % Platelet Count 337 130-400 10^3/uL Mean Platelet Volume 10.1 7.4-10.4 FL Neutrophils (%) (Auto) 68 42-75 % Lymphocytes (%) (Auto) 20 12-44 % Monocytes (%) (Auto) 9 0-12 % Eosinophils (%) (Auto) 2 0-10 % Basophils (%) (Auto) 0 0-10 % Neutrophils # (Auto) 4.7 1.8-7.8 X 10^3 Lymphocytes # (Auto) 1.4 1.0-4.0 X 10^3 Monocytes # (Auto) 0.6 0.0-1.0 X 10^3 Eosinophils # (Auto) 0.2 0.0-0.3 10^3/uL Basophils # (Auto) 0.0 0.0-0.1 10^3/uL Prothrombin Time 12.2 12.2-14.7 SEC INR Comment 0.9 0.8-1.4 Activated Partial Thromboplast Time 20 L 24-35 SEC Sodium Level 138 135-145 MMOL/L Potassium Level 4.0 3.6-5.0 MMOL/L Chloride Level 102 98-107 MMOL/L Carbon Dioxide Level 22 21-32 MMOL/L Anion Gap 14 5-14 MMOL/L Blood Urea Nitrogen 28 H 7-18 MG/DL Creatinine 1.13 0.60-1.30 MG/DL Estimat Glomerular Filtration Rate > 60 BUN/Creatinine Ratio 25 Glucose Level 136 H 70-105 MG/DL Calcium Level 10.4 H 8.5-10.1 MG/DL Corrected Calcium 8.5-10.1 MG/DL Magnesium Level 2.2 1.8-2.4 MG/DL Total Bilirubin 0.9 0.1-1.0 MG/DL Aspartate Amino Transf (AST/SGOT) 20 5-34 U/L Alanine Aminotransferase (ALT/SGPT) 24 0-55 U/L Alkaline Phosphatase 57 40-136 U/L Total Creatine Kinase 134 30-200 U/L Creatine Kinase MB 4.0 <6.6 NG/ML Troponin I < 0.028 <0.028 NG/ML B-Type Natriuretic Peptide 56.0 <100.0 PG/ML Total Protein 7.8 6.4-8.2 GM/DL Albumin 4.7 H 3.2-4.5 GM/DL TSH [place] Testing 0.52 0.35-4.94 UIU/ML Urine Color YELLOW Urine Clarity CLEAR Urine pH 5 5-9 Urine Specific Mason 1.020 1.016-1.022 Urine Protein NEGATIVE NEGATIVE Urine Glucose (UA) NEGATIVE NEGATIVE Urine Ketones NEGATIVE NEGATIVE Urine Nitrite NEGATIVE NEGATIVE Urine Bilirubin NEGATIVE NEGATIVE Urine Urobilinogen NORMAL NORMAL MG/DL Urine Leukocyte Esterase NEGATIVE NEGATIVE Urine RBC (Auto) NEGATIVE NEGATIVE Urine RBC NONE /HPF Urine WBC NONE /HPF Urine Crystals NONE /LPF Urine Bacteria NEGATIVE /HPF Urine Casts NONE /LPF Urine Mucus NEGATIVE /LPF Urine Culture Indicated NO Glucometer 135 H 70-110 MG/DL My Orders Orders - MAYRACIARRA House Alannah DO Saline Lock/Iv-Start (08/19/18 17:59) Ekg Tracing (08/19/18 17:59) Monitor-Rhythm Ecg Trace Only (08/19/18 17:59) Orthostatic Vital Signs (Adult (08/19/18 17:59) BNP (08/19/18 17:59) Cbc With Automated Diff (08/19/18 17:59) Comprehensive Metabolic Panel (08/19/18 17:59) Creatine Kinase (08/19/18 17:59) Creatine Kinase Mb (08/19/18 17:59) Magnesium (08/19/18 17:59) Protime With Inr (08/19/18 17:59) Partial Thromboplastin Time (08/19/18 17:59) Thyroid Analyzer (08/19/18 17:59) Troponin I (08/19/18 17:59) Ua Culture If Indicated (08/19/18 17:59) Ct Head Wo-R/O Stroke (08/19/18 18:08) Chest Pa/Lat (2 View) (08/19/18 18:08) Ondansetron Injection (Zofran Injectio (08/19/18 18:15) Saline Lock/Iv-Start (08/19/18 18:08) Ns Iv 1000 Ml (Sodium Chloride 0.9%) (08/19/18 18:08) Accucheck Stat ONCE (08/19/18 18:08) Scopolamine Patch (Transderm-Scop Patch) (08/19/18 18:15) Ct Angio Head/Neck (08/19/18 19:04) Medications Given in ED Vital Signs/I&O 08/19/18 21:12 Pulse 71 Resp 16 B/P (MAP) 133/73 (93) Pulse Ox 98 08/20/18 00:00 Intake Total 1000 ml Balance 1000 ml Capillary Refill : Less Than 3 Seconds Blood Pressure Mean: 87 Progress Note : Progress Note NO DETERIORATION IN PT'S CONDITION DURING ER STAY PT ABLE TO AMBULATE TO AND FROM BATHROOM AT LEAST TWICE ON HIS OWN, DID WALK SLOW, AND PT STATES AT HOME HE WOULD GRAB ONTO SOMETHING TO AMBULATE BECAUSE HE WAS DIZZY ECG Initial ECG Impression Date: Aug 19, 2018 Initial ECG Impression Time: 18:23 Initial ECG Rate: 66 Initial ECG Rhythm: Normal Sinus Initial ECG Impression: Nonspecific Changes Initial ECG Comparisson: No Previous ECG Available Diagnostic Imaging Comments CXR--PERSISTENT RIGHT INFRAHILAR INFILTRATE. PLEURAL THICKENING AND ASSOCIATED RIB FRACTURES--UNCHANGED FROM PREVIOUS, PER RADIOLOGIST REPORT @ 1999 CT HEAD--NO ACUTE PROCESS, CHRONIC MICROVASCULAR CHANGES--PER RADIOLOGIST REPORT @ 1903 CT ANGIOGRAM HEAD/NECK-- Reviewed: Reviewed by Me Departure Communication (Admissions) 2035--CALLED NATHALY MCCABE NEUROLOGIST TUBE ROOM CASHIER 2048--SPOKE WITH REVENUE COORDINATOR TUBE ROOM CASHIER ( WAS RECOMMENDED INSTEAD OF NEUROLOGIST) HE ADVISES THAT NO ADDITIONAL TESTS NEED TO BE DONE TONIGHT, AND THAT HE SHOULD FOLLOW UP WITH HIS REGULAR EYE DR FOR COMPLETE EYE EXAM. PT ADVISED OF POSSIBLE NEED FOR ADDITIONAL OUTPATIENT TESTS THAT COULD BE ORDERED BY HIS PCP, SO ADVISED TO FOLLOW UP WITH HIM THIS WEEK WELL Impression Primary Impression: HORIZONTAL DIPLOPIA Additional Impressions: Dizziness Headache Disposition: 01 HOME, SELF-CARE Condition: Stable Departure-Patient Inst. Referrals: DAMI CARTY MD (PCP/Family) Primary Care Physician Patient Instructions: Dizziness, Nonvertigo, (DC), Double Vision (DC), Headache , Adult (DC) Add. Discharge Instructions: LEAVE SCOPOLAMINE PATCH IN PLACE FOR 72 HOURS SLOW POSITION CHANGES NO DRIVING FOLLOW UP WITH DR. PALMER TOMORROW FOR FURTHER CARE FOLLOW UP WITH DR. CARTY IN 1-2 DAYS FOR FURTHER CARE RETURN TO ER IF SYMPTOMS WORSEN All discharge instructions reviewed with patient and/or family. Voiced understanding. CIARRA NUNEZ DO Aug 19, 2018 18:22
[2018-08-19 18:24] LABS: BILIRUBIN,URINE NEGATIVE (NEGATIVE); CLARITY,URINE CLEAR; COLOR,URINE YELLOW; GLUCOSE, URINE (UA) NEGATIVE (NEGATIVE); KETONES,URINE NEGATIVE (NEGATIVE); LEUKOCYTE ESTERASE ,URINE NEGATIVE (NEGATIVE); NITRITE,URINE NEGATIVE (NEGATIVE); PH,URINE 5 (5-9); PROTEIN,URINE NEGATIVE (NEGATIVE); UROBILINOGEN,URINE NORMAL (NORMAL)
[2018-08-19 18:29] LABS: INR 0.9 (0.8-1.4); PROTHROMBIN TIME PATIENT 12.2 SEC (12.2-14.7)
[2018-08-19 18:41] LABS: TSH (THYROID ANALYZER) 0.52 UIU/ML (0.35-4.94)
[2018-08-19 18:47] LABS: BACTERIA,URINE NEGATIVE /HPF
--- NOTE | 2018-08-19 19:02 | Diagnostic Imaging Report ---
PROCEDURE: CT head wo r/o stroke. TECHNIQUE: Multiple contiguous axial images were obtained through the brain without the use of intravenous contrast. Auto Exposure Controls were utilized during the CT exam to meet ALARA standards for radiation dose reduction. INDICATION: Dizziness. Left jaw pain. Blurred vision. FINDINGS: Noncontrasted images show diffuse cortical atrophy. Ventricles are not dilated. Chronic periventricular white matter changes noted. There is no evidence of intracranial hemorrhage. No extra-axial fluid collection. No mass effect. The basal cisterns are clear. Pituitary is not enlarged. Orbital contents are symmetrical. Mastoid air cells are well aerated as are the paranasal sinuses, where visualized. No calvarial lesions are seen. Soft tissues are normal. IMPRESSION: Cortical atrophy with chronic white matter changes. No acute abnormalities have occurred since previous exam of 02/24/2016. Dictated by: Dictated on workstation # [id number]
--- NOTE | 2018-08-19 19:23 | Diagnostic Imaging Report ---
INDICATION: Left-sided jaw pain. Dizziness. Weakness. COMPARISON: 11/17/2017. FINDINGS: There is recurrent or persistent infiltrate in the right infrahilar region. This is unchanged in appearance. The left lung is well-aerated and clear. There is chronic elevation of the right hemidiaphragm. The heart is not enlarged. No masses are seen. IMPRESSION: Increased density along the right lower infrahilar region. This is unchanged from previous chest x-ray. Previous CT scan from 02/06/2018 suggests this probably represents chronic pleural thickening along the posterior medial aspect of the right lower lung with associated rib fracture. Dictated by: Dictated on workstation # [id number]
--- NOTE | 2018-08-19 20:19 | Diagnostic Imaging Report ---
PROCEDURE: CT angiography of the head and CT angiography of the neck with and without contrast. TECHNIQUE: Contiguous noncontrast images were obtained from the skull base through the vertex. After intravenous contrast administration, helical CT angiography of the neck was performed. Source data was reformatted into multiple MIP projections. Delayed post contrast acquisition was also obtained. Auto Exposure Controls were utilized during the CT exam to meet ALARA standards for radiation dose reduction. INDICATION: Dizziness with blurred vision and left jaw pain for over one week. FINDINGS: Good opacification of the aortic arch. The carotid and vertebral arteries show normal takeoff. There are a few scattered dense calcifications within the left vertebral artery throughout. The right vertebral artery is significantly smaller. Both vertebral arteries do supply the basilar artery. The carotid arteries show dense calcification at the bifurcation without hemodynamic disease. There is no carotid dissection. Intracranial images show good opacification of the carotid siphons. There is mild atherosclerotic disease. The middle cerebral arteries are widely patent throughout without evidence of occlusive disease or stenosis. The anterior communicating artery is patent. The anterior cerebral arteries are normal. Posterior communicating arteries are intact. The posterior cerebral arteries appear normal. The cerebellar arteries are opacified and normal. Delayed images show no evidence of abnormal intracranial enhancement. IMPRESSION: 1. Scattered calcified atherosclerotic plaquing within the carotid arteries and vertebral arteries throughout the neck and into the carotid siphon without evidence of hemodynamic stenosis. No evidence of intracranial occlusive disease or spasm. Dictated by: Dictated on workstation # [id number]
[2018-08-19 21:12] VITALS: BP 133/73
== END 2018-08-19 21:12 | disposition home or self-care (01) ==
LOC: EDUNIT# 17:31 → ER 17:32
DX: H53.2 Diplopia (principal); R42 Dizziness and giddiness; R51 Headache; E11.40 Type 2 diabetes mellitus with diabetic neuropathy, unspecified; I25.10 Atherosclerotic heart disease of native coronary artery without angina pectoris; I25.2 Old myocardial infarction; E78.00 Pure hypercholesterolemia, unspecified; I10 Essential (primary) hypertension; K21.9 Gastro-esophageal reflux disease without esophagitis; E11.9 Type 2 diabetes mellitus without complications; Z79.82 Long term (current) use of aspirin; Z87.19 Personal history of other diseases of the digestive system; Z79.84 Long term (current) use of oral hypoglycemic drugs; Z98.890 Other specified postprocedural states; Z95.5 Presence of coronary angioplasty implant and graft
CPT/HCPCS: 36415; 70450; 70496; 70498; 71046; 80053; 81000; 82550; 82553; 82962; 83735; 83880; 84443; 84484; 85025; 85610; 85730; 93005; 93041; 96361; 96374

== ENCOUNTER → 2018-08-28 | Outpatient (CLI) | payer MEDICARE, OTHER ==
--- NOTE | 2018-08-28 14:58 | Diagnostic Imaging Report ---
INDICATION: Right knee pain, swelling. TECHNIQUE: 3 views of the right knee CORRELATION STUDY: None FINDINGS: The joint spaces are maintained. The articular surfaces are smooth and preserved. There is no acute bony abnormality. Suspect small suprapatellar joint fluid. IMPRESSION: 1. Negative for acute bony abnormality of the knee. Dictated by: Dictated on workstation # [id number]
--- NOTE | 2018-08-28 16:32 | Diagnostic Imaging Report ---
PROCEDURE: US right lower extremity venous. TECHNIQUE: Multiple real-time grayscale images were obtained over the right lower extremity in various projections. Additional spectral analysis and color Doppler duplex images were also obtained. INDICATION: Right knee injury. There is no evidence of right lower extremity DVT. Right lower extremity deep venous system shows normal compressibility with normal response to augmentation and Valsalva. There is a Jaime's cyst measuring 3.7 x 0.9 x 2.6 cm. IMPRESSION: 1. No evidence of right lower kidney DVT. 2. Jaime's cyst. Dictated by: Dictated on workstation # [id number]
== END ==
LOC: RAD 14:29
PROVIDERS: ATTEND Nurse Practitioner Family
DX: I83.891 Varicose veins of right lower extremity with other complications (principal); S89.91XA Unspecified injury of right lower leg, initial encounter; M71.21 Synovial cyst of popliteal space [Baker], right knee
CPT/HCPCS: 73562

== ENCOUNTER → 2019-06-05 | Outpatient (CLI) | payer MEDICARE, OTHER ==
[~2019-06-05] VITALS: Ht 183 cm; Wt 92.0 kg
[~2019-06-05] MED LIST changes: +CATHETER FLUSH 10 ML SYR IV PRN; +REGADENOSON 0.4 MG/5 ML SYR (LEXISCAN) IV ONE
[2019-06-05 08:58] VITALS: BP 129/80
[2019-06-05 09:02] VITALS: BP 134/76
--- NOTE | 2019-06-05 19:51 | STRESS TEST ---
DATE OF SERVICE: 06/05/2019 LEXISCAN MYOVIEW STRESS TEST REPORT Baseline heart rate is 65, baseline blood pressure 148/90. Baseline EKG is sinus rhythm with no ischemic changes. In summary, the patient received 10.75 mCi of technetium-99 Myoview and the resting images were obtained. Then, the patient received 0.4 mg of Lexiscan followed by 29.4 mCi of technetium-99 Myoview. Throughout the test, there were no EKG changes. The resting and stress images were reviewed and compared in the short axis, horizontal long axis, and vertical long axis views. Review of the images showed good radiotracer uptake with no significant ischemia or infarction. SSS is 3, SDS 3, TID value 1.08. On the gated images, the left ventricle appeared to be normal size with normal contractility. Calculated ejection fraction 65%. CONCLUSION: 1. The patient tolerated Lexiscan well. 2. No ischemia or infarction on SPECT images. 3. Normal left ventricular size with normal contractility. Calculated ejection fraction 65%. Job ID: [id number] DocumentID: [id number] Dictated Date: 06/05/2019 15:36:11 Pattern Changer And Repairer Date: 06/05/2019 19:51:29 Dictated By: NILESH HUANG MD
== END ==
LOC: CARD 06:57
PROVIDERS: ATTEND Physician Assistant
DX: I10 Essential (primary) hypertension (principal); E78.2 Mixed hyperlipidemia; E11.9 Type 2 diabetes mellitus without complications; I25.10 Atherosclerotic heart disease of native coronary artery without angina pectoris; I77.89 Other specified disorders of arteries and arterioles
CPT/HCPCS: 78452; 93017

== ENCOUNTER → 2019-06-06 | Outpatient (CLI) | payer MEDICARE, OTHER ==
[~2019-06-06] MED LIST changes: -CATHETER FLUSH 10 ML SYR IV PRN; +HOLD METFORMIN - RECEIVED CONTRAST 20 ML VIAL IV SCH; +IOHEXOL 350 MG/ML 100 ML (OMNIPAQUE 350) VIAL IV ONE; +NS 100 ML (IVPB) BAG IV ONE; -REGADENOSON 0.4 MG/5 ML SYR (LEXISCAN) IV ONE
[2019-06-06 08:39] LABS: BUN/CREATININE RATIO 14; CREATININE SERUM 1.09 MG/DL (0.60-1.30); GFR ESTIMATED > 60
== END ==
LOC: CARD 08:04
PROVIDERS: ATTEND Physician Assistant
DX: I11.9 Hypertensive heart disease without heart failure (principal); E78.2 Mixed hyperlipidemia; E11.9 Type 2 diabetes mellitus without complications; I25.10 Atherosclerotic heart disease of native coronary artery without angina pectoris; I77.89 Other specified disorders of arteries and arterioles
CPT/HCPCS: 36415; 82565; 84520; 93306

== ENCOUNTER → 2020-09-18 | Outpatient (CLI) | payer MEDICARE, OTHER ==
[2020-09-18 10:09] LABS: ALBUMIN 4.4 GM/DL (3.2-4.5); BILIRUBIN,TOTAL 0.7 MG/DL (0.1-1.0); CALCIUM 9.6 MG/DL (8.5-10.1); CREATININE SERUM 1.23 MG/DL (0.60-1.30); POTASSIUM 4.1 MMOL/L (3.6-5.0); TOTAL PROTEIN 7.2 GM/DL (6.4-8.2)
--- NOTE | 2020-09-18 10:55 | Diagnostic Imaging Report ---
EXAMINATION: CT angiography of the chest. TECHNIQUE: Contrast enhanced thin section helical images were obtained through the chest with intravenous contrast timed for the optimal opacification of the arterial structures per CTA protocol. Post-processing, reconstructions and interpretation of angiographic images of the vessels was performed. 3D MIP reconstructions were performed and reviewed. All CT scans use one or more of the following dose optimizing techniques: automated exposure control, MA and/or KvP adjustment based on a patient size and exam type, or iterative reconstruction. HISTORY: Thoracic aortic aneurysm COMPARISON: 06/06/2019 FINDINGS: Ascending aorta is unchanged in size measuring up to 3.8 x 4.1 cm, previously 3.8 x 4.1 cm. The aorta is unchanged in size measuring up to 4.0 cm. There is pulsation artifact involving the ascending aorta. There is no edema or pneumonia. No pleural effusion. No pneumothorax. No suspicious nodules. There is no axillary or supraclavicular lymphadenopathy. There is no mediastinal lymphadenopathy. Heart size is normal. There are moderate coronary artery calcifications. No pericardial effusion. Limited views of the upper abdomen are unremarkable. There are no suspicious osseus lesions. There are old right-sided rib fractures. IMPRESSION: 1. Stable mildly dilated ascending aorta measuring up to 4.1 cm Dictated by: Dictated on workstation # [id number]
== END ==
LOC: CARD 09:40
PROVIDERS: ATTEND Internal Medicine Cardiovascular Disease
DX: I34.0 Nonrheumatic mitral (valve) insufficiency (principal); I11.9 Hypertensive heart disease without heart failure; I25.10 Atherosclerotic heart disease of native coronary artery without angina pectoris; I71.2 Thoracic aortic aneurysm, without rupture
CPT/HCPCS: 36415; 71275; 80053; 80061; 93306

== ENCOUNTER → 2020-10-28 | Outpatient (CLI) | payer MEDICARE, OTHER ==
[~2020-10-28] VITALS: Ht 185 cm; Wt 91.0 kg
[~2020-10-28] MED LIST changes: +CATHETER FLUSH 10 ML SYR IV PRN; -HOLD METFORMIN - RECEIVED CONTRAST 20 ML VIAL IV SCH; -IOHEXOL 350 MG/ML 100 ML (OMNIPAQUE 350) VIAL IV ONE; -NS 100 ML (IVPB) BAG IV ONE
[2020-10-28 13:16] VITALS: BP 124/67
--- NOTE | 2020-10-28 16:53 | Cardiology Stress Test Report ---
Stress Test Report Date of Procedure/Referring: Date of Procedure: Oct 28, 2020 PCP Nilesh Dodson MD Admitting Physician Vitaly Villarreal MD Indications: HTN Baseline Heart Rate: 63 Baseline Blood Pressure: Blood Pressure Systolic: 124 Blood Pressure Diastolic: 67 Vital Signs Date Time Temp Pulse Resp B/P (MAP) Pulse Ox O2 Delivery O2 Flow Rate FiO2 10/28/20 13:16 63 124/67 (86) 99 Baseline Vital Signs Vital Signs Date Time Temp Pulse Resp B/P (MAP) Pulse Ox O2 Delivery O2 Flow Rate FiO2 10/28/20 13:16 63 124/67 (86) 99 Baseline EKG: Baseline EKG: NSR Summary: After explaining the procedure and details to the patient, he signed the consent and was brought to the stress nuclear laboratory. Patient exercised on standard Mark protocol, EKG, heart rate and blood pressure were monitored continuously, resting and stress doses of radio tracer were injected, imaging was acquired and reviewed in the short axis, horizontal long axis and vertical long axis views Patient was able to exercise for a total of 7 minutes on Mark protocol, METs 8.5 Maximum heart rate 127 Maximum blood pressure 199/59 Stress EKG, Minimal nondiagnostic changes Recovery EKG, Return to baseline TID: 1.08 SSS: 2 SDS: 2 EF: 75 Conclusion: 1. Good exercise tolerance for a total of 7 minutes on standard Mark protocol, 8.5 METS achieving 85% of maximal expected heart rate 2. Appropriate heart rate and blood pressure response to exercise return to baseline during recovery 3. Nondiagnostic EKG changes with exercise return to baseline during recovery 4. No significant ischemia or infarction on SPECT images 5. Normal left ventricular size, EF 75% NILESH DODSON MD Oct 28, 2020 16:53
== END ==
LOC: CARD 10:56
PROVIDERS: ATTEND Internal Medicine Cardiovascular Disease
DX: I25.10 Atherosclerotic heart disease of native coronary artery without angina pectoris (principal); I10 Essential (primary) hypertension; I71.2 Thoracic aortic aneurysm, without rupture
CPT/HCPCS: 78452; 93017; A9502

== ENCOUNTER → 2022-02-15 | Outpatient (CLI) | payer MEDICARE, OTHER ==
[~2022-02-15] MED LIST changes: -CATHETER FLUSH 10 ML SYR IV PRN
== END ==
LOC: CARD 13:23
PROVIDERS: ATTEND Physician Assistant
DX: I11.9 Hypertensive heart disease without heart failure (principal)
CPT/HCPCS: 93306

== ENCOUNTER → 2022-03-09 | Outpatient (CLI) | payer MEDICARE, OTHER ==
[~2022-03-09] MED LIST changes: +CATHETER FLUSH 10 ML SYR IVP PRN; +REGADENOSON 0.4 MG/5 ML SYR (LEXISCAN) IV ONE
[2022-03-09 09:13] VITALS: BP 150/92
--- NOTE | 2022-03-09 11:55 | Cardiology Stress Test Report ---
Stress Test Report Date of Procedure/Referring: Date of Procedure: Mar 09, 2022 PCP Vitaly Villarreal MD Admitting Physician Admitting Physician: Attending Physician: Loly Burden Baseline Heart Rate: 67 Baseline Blood Pressure: Blood Pressure Systolic: 150 Blood Pressure Diastolic: 92 Baseline Vitals Vital Signs Date Time Temp Pulse Resp B/P (MAP) Pulse Ox O2 Delivery O2 Flow Rate FiO2 03/09/22 09:13 67 17 150/92 (111) Room Air Baseline EKG: Baseline EKG: NSR Summary After explaining the procedure to the patient, he signed a consent and then brought to the stress nuclear laboratory. Patient received 0.4 mg Lexiscan for stress test, ECG, heart rate and blood pressure were monitored continuously. Resting and stress dose of radio tracer were injected, imaging was acquired and reviewed in short axis, horizontal long axis and vertical long axis views. TID: 1.19 SSS: 1 SDS: 1 EF: 67 1. Patient tolerated Lexiscan well 2. No significant ischemia or infarction noted on SPECT images 3. Normal left ventricular size, ejection fraction 67% NILESH HUANG MD Mar 09, 2022 11:55
== END ==
LOC: CARD 07:52
PROVIDERS: ATTEND Physician Assistant
DX: I25.10 Atherosclerotic heart disease of native coronary artery without angina pectoris (principal)
CPT/HCPCS: 78452; 93017; A9502

== ENCOUNTER → 2023-03-09 | Outpatient (CLI) | payer MEDICARE, OTHER ==
[~2023-03-09] MED LIST changes: -CATHETER FLUSH 10 ML SYR IVP PRN; +IOHEXOL 350 MG/ML 100 ML (OMNIPAQUE 350) VIAL IV ONE; +NS 100 ML (IVPB) BAG IV ONE; -REGADENOSON 0.4 MG/5 ML SYR (LEXISCAN) IV ONE
[2023-03-09 09:53] LABS: CREATININE SERUM 1.16 MG/DL (0.60-1.30)
--- NOTE | 2023-03-09 10:56 | Diagnostic Imaging Report ---
PROCEDURE: CT angiography of the chest with contrast. TECHNIQUE: Multiple contiguous axial images were obtained through the chest after uneventful bolus administration of intravenous contrast. 3D reconstructed CTA MIP acquisitions were also performed. Auto Exposure Controls were utilized during the CT exam to meet ALARA standards for radiation dose reduction. INDICATION: EXAMINATION: CT angiography of the chest. HISTORY: Thoracic aortic aneurysm COMPARISON: 09/18/2020 FINDINGS: Ascending aorta is unchanged in size measuring up to 4.1 cm, previously 4.1 cm. The aorta is unchanged in size measuring up to 4.0 cm. There is pulsation artifact involving the ascending aorta. Pulmonary arteries are well-opacified without intraluminal filling defect. There is no edema or pneumonia. No pleural effusion. No pneumothorax. No suspicious nodules. Juxtapleural nodules in both lungs measure less than 0.5 cm in size. There is no axillary or supraclavicular lymphadenopathy. There is no mediastinal lymphadenopathy. Heart size is normal. There are moderate coronary artery calcifications. No pericardial effusion. Aorta is normal in caliber. Limited views of the upper abdomen are unremarkable. There is no change in right thyroid gland calcification. There are no suspicious osseus lesions. There are old right-sided rib fractures. IMPRESSION: Stable mildly dilated ascending aorta measuring up to 4.1 cm Dictated by: Dictated on workstation # [id number]
== END ==
LOC: RAD 09:18
PROVIDERS: ATTEND Internal Medicine Cardiovascular Disease
DX: I77.810 Thoracic aortic ectasia (principal)
CPT/HCPCS: 36415; 71275; 82565